=== PATIENT | male | born 1990 | race Caucasian/White ===

== ENCOUNTER 2020-05-15 13:38 | Emergency (ER) | payer OTHER, SELFPAY ==
[2020-05-15 15:34] VITALS: BP 134/82; PULSE 80; RESP 16; TEMP 37.2; O2SAT 99; BMI 19.2
--- NOTE | 2020-05-15 15:38 | ED_ITS ---
HPI - Dental/Oral General Chief complaint: Dental/Oral Stated complaint: DENTAL PAIN Time Seen by Provider: 05/15/20 15:32 Source: patient Mode of arrival: ambulatory Limitations: no limitations History of Present Illness HPI Narrative: 29yoM presenting to the ED c c/o left lower dental pain/abscess x a few days worse today. Reports the abscess exploded in the waiting room . Reports he just got his [facility] back therefore will make an appointment to have The tooth extracted. Denies fever, chills, N/V/D, Difficulty swallowing, pain with swallowing, changes in PO intake, trauma to face now or recently, difficulty speaking, recent dental procedure, heat or cold intolerance while eating, gum swelling, throat swelling, bleeding, lacerations, facial swelling or redness, tongue swelling. Related Data Previous Rx's Medication Instructions Recorded ibuprofen 800 mg PO Q8H PRN #14 tab 05/15/20 oxycodone-acetaminophen [Percocet] 1 tab PO Q6H PRN #10 tab 05/15/20 penicillin V potassium 500 mg PO QID 10 Days #40 tab 05/15/20 Allergies Allergy/AdvReac Type Severity Reaction Status Date / Time benzocaine [From ANBESOL] Allergy Unknown INCREASED Unverified 04/21/20 16:34 FACIAL SWELLING phenol [From ANBESOL] Allergy Unknown INCREASED Unverified 04/21/20 16:34 FACIAL SWELLING povidone-iodine Allergy Unknown INCREASED Unverified 04/21/20 16:34 [From ANBESOL] FACIAL SWELLING Review of Systems Review of Systems: Yes all other systems are reviewed and are negative Constitutional: Constitutional: Reports as per HPI, Denies anorexia, Denies body ache(s), Denies chills, Denies fatigue, Denies fever(s), Denies headache(s), Denies poor appetite, Denies weakness, Denies weight gain and Denies weight loss Eyes: Eyes: Reports as per HPI ENT: Reports as per HPI, Denies dizziness, Denies headache(s) and Denies neck pain Cardiovascular: Cardiovascular: Reports as per HPI, Denies chest pain and Denies dyspnea Respiratory: Respiratory: Reports as per HPI, Denies cough and Denies dyspnea Gastrointestinal: Gastrointestinal: Reports as per HPI, Denies abdominal pain, Denies melena, Denies hematochezia, Denies coffee ground emesis, Denies constipation, Denies diarrhea, Denies loose stools, Denies nausea, Denies vomiting and Denies hematemesis Genitourinary: Genitourinary: Reports as per HPI, Denies hematuria, Denies difficulty urinating, Denies genital lesions, Denies genital pain, Denies flank pain, Denies urinary frequency, Denies urinary hesitancy and Denies urinary urgency Musculoskeletal: Musculoskeletal: Reports as per HPI, Denies neck pain, Denies numbness and Denies tingling Integumentary/Breasts: Skin/Breast: Reports as per HPI Neurologic: Reports as per HPI, Denies dizziness, Denies headache(s), Denies numbness, Denies tingling and Denies weakness Psychiatric: Psychiatric: Reports as per HPI Endocrine: Endocrine: Reports as per HPI and Denies fatigue Hematologic/Lymphatic: Hematologic/Lymphatic: Reports as per HPI Allergic/Immunologic: Allergic/Immunologic: Reports as per HPI [facility] Past Medical History Attestation statement: The following information was validated with the patient. Medical History No known health problems Social History Social History Alcohol intake: never Smoking Status: Current every day smoker Smoked in Last 30 Days: Yes Use of substances other than those prescribed or required for medical reasons: Yes Substance Use Type: Marijuana Substance Use Frequency: Socially Advance Directives: No Advance Directives Information Provided: No Physical Exam Const: General: cooperative, healthy appearing, comfortable, no acute distress, well developed, alert, awake and Physically active Nutritional Appearance: average body habitus and well nourished Orientation/consciousness: patient oriented x3 Limitations: no limitations HENMT: Head: Yes normal to inspection, Yes No palpable skull fracture present, Yes normocephalic and Yes atraumatic Ears: hearing grossly normal bilaterally General nose exam: Normal external nose present Face and sinus: Yes normal facial exam Mouth: Normal oral and palatal mucosa present, lip normal, tongue normal, Normal salivary glands and ducts present, oropharynx normal, moist mucous membranes, no drooling, no muffled voice and no trismus Teeth and gingiva: dentition normal, gingiva normal, caries (old fracture to left lower molar no fluctuance) and poor dentition Throat: Yes posterior oropharynx normal, Yes tonsils normal, Yes uvula midline and Yes other Eyes: General: appearance normal, both eyes and all related structures Visual Mensah: normal visual mensah by confrontation Alignment and Position: alignment normal Periorbital: periorbital findings normal Eyelids: Yes eyelids normal Conjunctivae: conjunctivae normal Sclerae: sclerae normal Pupils: Equal, round and reactive pupils present EOM: EOMs intact bilatera lly Neck: Neck: Yes normal visual inspection, Yes full ROM, Yes no lymphad enopathy, Yes no meningeal signs, Yes trachea midline and Yes supple Chest: Chest palpation & inspection: normal inspection of the chest Resp: Effort & Inspection: normal respiratory effort and able to speak in complete sentences Auscultation: clear to auscultation bilaterally, no crackles, no rales, no rhonchi and no wheezes Cardio: Rate: regular rate Rhythm: regular rhythm Heart sounds: S1 normal heart sound present and S2 normal heart sound present Peripheral pul ses: Peripheral pulses 2+ throughout GI: Inspection: Yes normal to inspection Palpation (GI): Soft to palpation, nontender and No hepatosplenomegaly present Percussion: Yes normal to percussion Auscultation: normal bowel sounds : General: Yes no CVA tenderness Back/Spine/Pelvis: Back: no CVA tenderness Cervical Spine: normal cervical lordosis and cervical ROM normal Thoracic/Lumbar Spine: thoracic and lumbar spine normal to inspection and thoraco-lumbar ROM normal Skin: General skin exam: no rashes or lesions noted, elasticity normal and turgor normal Trauma: no lacerations or abrasions Wounds: no wounds Hair: normal Nails: normal Neuro: General: patient oriented x3 and no meningeal signs Cranial nerves: Yes CN's II-XII intact bilaterally and Yes Equal, round and reactive pupils present Cognition (Neuro): normal cognition Gait exam (Neuro): Normal gait present Motor exam (neuro): 5/5 motor strength present throughout Extrem: General: Yes normal to inspection, Yes full ROM, Yes capillary refill normal, Yes no clubbing, cyanosis or edema, No no pedal edema, No no calf tenderness, Yes normal gait and No edema Right upper extremity: normal to inspection, full ROM and normal capillary refill; no edema Left upper extremity: normal to inspection, full ROM and normal capillary refill; no edema Right lower extremity: normal to inspection, full ROM and normal capillary refill; no edema Left lower extremity: normal to inspection, full ROM and normal capillary refill; no edema Psych: Appearance: grossly normal and well kempt Mental Status: mental status grossly normal Speech and movement: Normal speech and movement present and Clear speech present Affect: normal affect Attitude: cooperative Th ought process: Normal thought process present Thought content: Normal thought content present Insight: Good insight present (Psych) Judgement: Good judgement present (Psych) Course Course Course Narrative: Given HPI and PE, most likely diagnosis: dental pain/caries. No facial swelling, signs of infection, cellulits, lymphangitis, or abscess. Patient is afebrile, well appearing in no acute distress. No ginigival swelling, or bleeding. Multiple dental carries and poor dentition. Patient will make an appointment this week. Will treat pain and place on abx's. Educated on signs of infection and advised to return to ED, should experience facial swelling, fever, N/V. Patient understands and agrees with plan. [facility] - Dental/Oral Medical Records Attestation: I reviewed the patient's medical records. Discharge Plan Discharge Clinical Impression: Dental caries, Toothache Patient Disposition: Home, Self-Care Instructions: Toothache (ED) Prescriptions: New penicillin V potassium 500 mg tablet 500 mg PO QID 10 Days Qty: 40 RF: 0 oxycodone-acetaminophen [Percocet] 5-325 mg tablet 1 tab PO Q6H PRN (Reason: pain) Qty: 10 RF: 0 ibuprofen 800 mg tablet 800 mg PO Q8H PRN (Reason: pain) Qty: 14 RF: 0 Stand Alone Forms: Work/School Release Print Language: Korean
== END 2020-05-15 16:12 | disposition home or self-care (01) ==
PROVIDERS: Emergency Provider Emergency Medicine
DX: K02.9 Dental caries, unspecified (principal); K08.89 Other specified disorders of teeth and supporting structures; F17.200 Nicotine dependence, unspecified, uncomplicated
CPT/HCPCS: 99283; 99284

== ENCOUNTER 2020-06-17 09:55 | Outpatient (REF) | payer OTHER, SELFPAY | END 2020-06-17 09:56 | disposition home or self-care (01) | LOC: HO.LAB 09:55 | PROVIDERS: Visit Provider Internal Medicine | DX: Z20.828 Contact with and (suspected) exposure to other viral communicable diseases (principal) | CPT/HCPCS: C9803; U0003 ==

== ENCOUNTER 2020-08-23 15:39 | Outpatient (REF) | payer OTHER, SELFPAY | END 2020-08-23 15:40 | disposition home or self-care (01) | LOC: HO.LAB 15:39 | PROVIDERS: Visit Provider Internal Medicine | DX: Z20.822 Contact with and (suspected) exposure to COVID-19 (principal) | CPT/HCPCS: 36415; C9803; U0003 ==

== ENCOUNTER 2020-11-28 14:54 | Outpatient (REF) | payer OTHER, SELFPAY ==
[2020-11-28 15:05] LABS: COVID-19 Test Positive (Negative)
== END 2020-11-28 14:55 | disposition home or self-care (01) ==
LOC: HO.LAB 14:54
PROVIDERS: Visit Provider Internal Medicine
DX: Z20.822 Contact with and (suspected) exposure to COVID-19 (principal)
CPT/HCPCS: 36415; 87635; C9803

== ENCOUNTER 2020-12-07 15:17 | Outpatient (REF) | payer OTHER, SELFPAY | END 2020-12-07 15:18 | disposition home or self-care (01) | LOC: HO.LAB 15:17 | PROVIDERS: Visit Provider Internal Medicine | DX: Z20.822 Contact with and (suspected) exposure to COVID-19 (principal) | CPT/HCPCS: C9803; U0003; U0005 ==

== ENCOUNTER 2023-01-03 17:59 | Emergency (ER) | payer OTHER, SELFPAY ==
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
[2023-01-03 20:15] VITALS: BP 122/64; PULSE 66; RESP 20; TEMP 36.5; O2SAT 100; BMI 18.5
[2023-01-03 20:20] VITALS: RESP 18
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
--- NOTE | 2023-01-03 22:05 | PC.NURSE ---
pt of to ct
[2023-01-03] MEDS: oxyCODONE HCl Immed Release 5 MG TABLET PO (22:14)
[2023-01-03 23:08] VITALS: BP 115/80; PULSE 53; RESP 18; O2SAT 99
[2023-01-03] MEDS: Ibuprofen 600 MG TABLET PO (23:08)
== END 2023-01-03 23:29 | disposition home or self-care (01) ==
PROVIDERS: Emergency Provider Emergency Medicine
DX: S16.1XXA Strain of muscle, fascia and tendon at neck level, initial encounter (principal); S40.012A Contusion of left shoulder, initial encounter; R51.9 Headache, unspecified; M54.2 Cervicalgia; M54.6 Pain in thoracic spine; V43.52XA Car driver injured in collision with other type car in traffic accident, initial encounter; Y93.9 Activity, unspecified; Y92.410 Unspecified street and highway as the place of occurrence of the external cause; Y99.9 Unspecified external cause status; Z79.899 Other long term (current) drug therapy
CPT/HCPCS: 70450; 71101; 72070; 72125; 73030; 99284

== ENCOUNTER 2024-06-28 11:03 | Emergency (ER) | payer OTHER, SELFPAY ==
[2024-06-28 11:12] VITALS: BP 122/63; PULSE 82; RESP 18; TEMP 37.1; O2SAT 98; BMI 19.2
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
--- NOTE | 2024-06-28 12:57 | PC.NURSE ---
PT placed into the room, patient asked for juice patient made aware that they would be NPO until the provider assessed them and determined if it was safe to have fluids this nurse and provider explained to her the risks of eating and drinking before provider assessment and images,etc.... PT said she could have fluids and nothing was wrong with her, except for her leg and that she needed, pt demanded to speak to credit charge authorizer, credit charge authorizer verbalized the risks of having fluids/ food before it was determined safe as well. PT said Security told me to check in because you guys can help me with a ride. We explained to the patient that unfortunately no ride services are available today but that the bus is free. PT said You guys have to give me a ride or i will call the police, you guys are not going to disrespect the police. Patient wishes to leave because she wants to get a drink out in the waiting room and refuses to wait to be cleared.
[2024-06-28 13:01] VITALS: BP 122/63; PULSE 82; RESP 18; TEMP 37.1; O2SAT 98
== END 2024-06-28 13:01 | disposition home or self-care (01) ==
PROVIDERS: Emergency Provider Emergency Medicine
DX: S61.012A Laceration without foreign body of left thumb without damage to nail, initial encounter (principal); M79.642 Pain in left hand; W26.0XXA Contact with knife, initial encounter; Y93.G3 Activity, cooking and baking; Y92.89 Other specified places as the place of occurrence of the external cause; Y99.0 Civilian activity done for income or pay
CPT/HCPCS: 99282; 99284

== ENCOUNTER 2024-06-30 08:14 | Emergency (ER) | payer OTHER, MEDICAID, SELFPAY ==
[2024-06-30 08:40] VITALS: BP 122/66; PULSE 61; RESP 16; TEMP 37.2; O2SAT 98; BMI 18.4
--- NOTE | 2024-06-30 09:20 | ED.WOUNDLAC ---
HPI - Wound/Laceration General Chief Complaint: Wound/Laceration Stated Complaint: Lac L hand Time Seen by Provider: 06/30/24 09:01 Source: patient Mode of arrival: ambulatory Limitations: no limitations History of Present Illness ED Provider: MONI LUIS PA-C HPI narrative: 33 year old male no significant past medical history presents to the ED today for evaluation of laceration to left 1st digit. Patient has sustained this laceration while cutting a turkey at work 2 days ago. He presented to the ED and was told that the area could not be sutured. Dermabond was applied and he was discharged home. Patient states that since being discharged, the laceration has opened. It has been bleeding. Reports concern about returning to work with an open laceration. Denies any pus or surrounding redness. Denies difficulty moving the thumb. He is not on anticoagulation. He tells me his tetanus has been updated in the last 5 years. Denies fever, chills. Denies any other complaints at present. Related Data Previous Rx's ?Medication ?Instructions ?Recorded ibuprofen 800 mg tablet 800 mg PO Q8H PRN pain #14 tabs 05/15/20 oxycodone-acetaminophen 5 mg-325 1 tab PO Q6H PRN pain #10 tabs 05/15/20 mg tablet (Percocet) penicillin V potassium 500 mg 500 mg PO QID dental infection 10 05/15/20 tablet days #40 tabs ibuprofen 600 mg tablet 600 mg PO Q8H PRN pain #14 tabs 01/03/23 Allergies Allergy/AdvReac Type Severity Reaction Status Date / Time benzocaine [From ANBESOL] Allergy Unknown INCREASED Verified 06/30/24 08:41 FACIAL SWELLING phenol [From ANBESOL] Allergy Unknown INCREASED Verified 06/30/24 08:41 FACIAL SWELLING povidone-iodine Allergy Unknown INCREASED Verified 06/30/24 08:41 [From ANBESOL] FACIAL SWELLING Review of Systems Review of Systems: Constitutional: No fever, chills, fatigue, night sweats, weight changes ENT/Mouth: No ear pain, hearing loss, nasal congestion, sinus pain, rhinorrhea, sore throat Eyes: No eye pain, swelling, redness, vision changes, discharge Cardio: No chest pain, palpitations, SERNA, orthopnea, peripheral edema Pulm: No SOB, cough, sputum, wheezing, dyspnea, hemoptysis GI: No nausea, vomiting, hematemesis, abdominal pain, diarrhea, constipation, hematochezia, melena : No irregular bleeding, dysuria, frequency, urgency, hesitancy, hematuria, flank pain, urinary flow changes, urinary incontinence or retention MSK: No back pain, neck pain, joint pain, myalgias Skin: No lesions, rashes, +laceration Neuro: No weakness, numbness, paresthesias, LOC, dizziness, headache Psych: No anxiety/panic, depression, SI/HI, AH/VH All other systems reviewed and are negative. [facility] Past Medical History Attestation statement: The following information was validated with the patient. Source: old records reviewed and nursing notes reviewed Medical History No known health problems Social History Social History Alcohol intake: never Substance Use Type: Marijuana Advance Directives: No Advance Directives Information Provided: Yes Physical Exam Vital Signs: Vital Signs: Last Vital Signs Temp 98.9 F 06/30/24 08:40 Pulse 61 06/30/24 08:40 Resp 16 06/30/24 08:40 BP 122/66 06/30/24 08:40 Pulse Ox 98 06/30/24 08:40 O2 Del Method Room Air 06/30/24 08:40 BMI result Body Mass Index 18.4 Vital signs stable General: Well appearing, in no acute distress. Skin: Warm, dry, intact. No rashes or lesions. Head: Normocephalic, atraumatic. EENT: Hearing is intact b/l. Conjunctiva clear. PERRLA. Moist mucous membranes.? Cardiac: Chest wall symmetric. Lungs: Normal respiratory effort without accessory muscle use. CTA bilaterally Ext: + 2 cm linear laceration noted between left 1st MCP and PIP. Bleeding controlled. No obvious foreign body. Finger to thumb opposition intact. Strength intact. Full ROM intact to left 1st digit w/ pain on flexion of MCP. Neuro: AOx3. Normal speech. Ambulating with steady gait. Psych: Appropriate mood and affect. Responds appropriately to questions. Course Course Course Narrative: 958 -- digital block performed. Laceration repair. See procedure note. Patient tolerated well. Advised to follow up with hand surgery, referral provided. Educated on returning in 10-14 days for suture removal. tetanus UTD. Patient has remained stable throughout ED visit today. Discussed worrisome signs and symptoms and when to return to the ED. All questions answered at this time. Patient is agreeable with disposition and stable for discharge. Medications Administered Discontinued Medications Generic Name Dose Route Start Last Admin Trade Name Twila PRN Reason Stop Dose Admin Lidocaine HCl 5 ml 06/30/24 09:22 06/30/24 09:38 Lidocaine Hcl 1 % Mpf 5 Ml Vial INFILTRATI 06/30/24 09:23 5 ml ONCE ONE Administration Medical Decision Making Medical Decision Making MDM Narrative: 33 year old male no significant past medical history presents to the ED today for evaluation of laceration to left 1st digit. Vital signs stable. Afebrile. He is nontoxic-appearing and in no acute distress. 2 cm linear laceration noted between left 1st MCP and PIP. Bleeding controlled. No obvious foreign body. Finger to thumb opposition intact. Strength intact. Full ROM intact to left 1st digit w/ pain on flexion of MCP. Differential diagnosis includes abrasion, laceration. Unlikely fracture, ligament/tendon injury, retained foreign body. Plan for laceration repair and disposition. Differential Diagnosis Differential Diagnoses: The differential diagnosis associated with the presentation includes As above Admission/Observation Not indicated External Record Review External record reviewed: Inpatient record Prescription Management I considered prescription management with: Pain Medication Social Determinants Patient?s care significantly limited by Social Determinants of Health including: Other Social Determinant of Health Procedures Laceration Laceration 1: Site: hand Side (If applicable): left Size (cm): 2 Description: linear Depth: simple, single layer Local Anesthetic: lidocaine 1% Amount of anesthesia used (mL): 10 Pre-repair: wound explored Skin layer closed with: nylon Size (cm): 3-0 Number of sutures: 5 Technique: simple, interrupted Nerve Block Nerve Block 1: Time out performed: Yes Local Anesthetic: lidocaine 1% Amount of anesthesia used (mL): 10 Side: left Nerve Blocks: digital Procedure Successful: Yes Patient Tolerated Procedure: well Complications: none Critical Care Time Critical Care Time Critical Care Time: No Discharge Plan Discharge Clinical Impression: Suture of skin wound Finger laceration Qualifiers: Encounter type: subsequent encounter Finger: thumb Damage to nail status: without damage Foreign body presence: without foreign body Laterality: left Qualified Code(s): S61.012D - Laceration without foreign body of left thumb without damage to nail, subsequent encounter Patient Disposition: Home, Self-Care Instructions: Care For Your Stitches (ED), Finger Laceration (ED) Additional Instructions: You have been evaluated in the Emergency Department today for a laceration to your left thumb. Your laceration was repaired in the ED with 5 sutures.? Please keep the area surrounding the laceration clean and dry. Please keep the area out of the sunlight for the next 6 months to help prevent scarring.? If you develop redness or swelling at the site of your laceration please come back to the ER for a wound check. I recommend you take 600mg ibuprofen every 6 hours or tylenol 650mg every 6 hours as needed for pain. If needed, you can alternate these medications so that you take one medication every 3 hours. For example, at noon take ibuprofen, then at 3pm take tylenol, then at 6pm take ibuprofen. Please follow up with your primary care physician in 10-14 days for suture removal. You can also return to the ER or another urgent care facility for this service. Please follow up with [facility] (Dr. Sullivan). You've been provided with a referral. Call them today to make an appointment. they will not call you. Return to the Emergency Department if you experience discharge from your laceration, redness around your laceration, warmth around your laceration, fever, vomiting, numbness, tingling, or any other concerning symptoms. In the case of an emergency call 911. Prescriptions: No Action penicillin V potassium 500 mg tablet 500 mg PO QID 10 Days Qty: 40 0RF oxycodone-acetaminophen [Percocet] 5-325 mg tablet 1 tab PO Q6H PRN (Reason: pain) Qty: 10 0RF ibuprofen 800 mg tablet 800 mg PO Q8H PRN (Reason: pain) Qty: 14 0RF ibuprofen 600 mg tablet 600 mg PO Q8H PRN (Reason: pain) Qty: 14 0RF Referrals: Celestina Sullivan MD [Physician] - 3 days (left thumb laceration) Stand Alone Forms: Work/School Release Print Language: Albanian
[2024-06-30] MEDS: Lidocaine HCl 1 % MPF 5 ML VIAL INFILTRATI ×2 (09:38→10:01)
[2024-06-30] MEDS: Ibuprofen 600 MG TABLET PO (10:00)
[2024-06-30] MEDS: Bacitracin Oint 0.9 GM PACKET 1 APPL TOPICAL (10:01)
[2024-06-30 10:06] VITALS: BP 122/66; PULSE 61; RESP 16; TEMP 37.2; O2SAT 98
== END 2024-06-30 10:07 | disposition home or self-care (01) ==
PROVIDERS: Emergency Provider Emergency Medicine
DX: S61.412A Laceration without foreign body of left hand, initial encounter (principal); W26.0XXA Contact with knife, initial encounter; Y93.G3 Activity, cooking and baking; Y92.098 Other place in other non-institutional residence as the place of occurrence of the external cause; Y99.8 Other external cause status
CPT/HCPCS: 12001; 99283; 99284; J2003

== ENCOUNTER 2025-02-13 23:11 | Emergency (ER) | payer OTHER, SELFPAY ==
[2025-02-13 23:15] VITALS: BP 137/83; PULSE 96; RESP 22; TEMP 36.6; O2SAT 98; BMI 19.2
[2025-02-13 23:23] VITALS: BP 134/64; PULSE 87
[2025-02-13 23:25] VITALS: BP 134/64; PULSE 91; RESP 24; TEMP 36.4; O2SAT 99
--- NOTE | 2025-02-13 23:27 | ED.ALLEREA ---
HPI - Allergic Reaction General Chief complaint: Allergic Reaction Stated complaint: allergic reaction Time Seen by Provider: 02/13/25 23:22 Source: patient Mode of arrival: ambulatory Limitations: no limitations History of Present Illness ED Provider: Dr. Jeane Mitchell HPI narrative: 34-year-old male with no known medical history presenting with hives, throat closing after drinking a new type of whiskey tonight. Admits that he has had whiskey many times prior to now and has never had a reaction to it. He does admit that he has had allergic reactions in the past but never had any allergy testing to determine what he is allergic to. Denies other foods or ingested substances tonight. Does admit to tobacco and marijuana use. Denies other illicit substance use. Had been feeling well prior to this. Denies recent illness including syncope or near-syncope, fever, cough or cold-type symptoms, chest pain, difficulty breathing, abdominal pain, nausea or vomiting, tick or mosquito exposure, known sick contacts or travel. Related Data Previous Rx's ?Medication ?Instructions ?Recorded ibuprofen 800 mg tablet 800 mg PO Q8H PRN pain #14 tabs 05/15/20 oxycodone-acetaminophen 5 mg-325 1 tab PO Q6H PRN pain #10 tabs 05/15/20 mg tablet (Percocet) penicillin V potassium 500 mg 500 mg PO QID dental infection 10 05/15/20 tablet days #40 tabs ibuprofen 600 mg tablet 600 mg PO Q8H PRN pain #14 tabs 01/03/23 epinephrine 0.3 mg/0.3 mL 0.3 mg (0.3 mL) IM Q10M PRN 02/14/25 injection, auto-injector (EpiPen anaphylaxis #2 ea 2-Nish) prednisone 50 mg tablet 50 mg PO DAILY 5 days #5 tabs 02/14/25 Allergies Allergy/AdvReac Type Severity Reaction Status Date / Time benzocaine (From ANBESOL) Allergy Unknown INCREASED Verified 02/13/25 23:24 FACIAL SWELLING phenol (From ANBESOL) Allergy Unknown INCREASED Verified 02/13/25 23:24 FACIAL SWELLING povidone-iodine (From Allergy Unknown INCREASED Verified 02/13/25 23:24 ANBESOL) FACIAL SWELLING Review of Systems Review of Systems: Yes all other systems are reviewed and are negative (As per HPI) [facility] Past Medical History Attestation statement: The following information was validated with the patient. (Allergic reactions, remote history of asthma) [facility] Narrative: Uses alcohol, tobacco and marijuana Medical History No known health problems Social History Social History Alcohol intake: never Substance Use Type: Marijuana Advance Directives: No Advance Directives Information Provided: Yes Do you have a plan to hurt others: No Plan Physical Exam ED Vital Signs: Vital Signs - 24 hr 02/13/25 23:15 02/13/25 23:23 02/13/25 23:25 Temperature 98 F 97.5 F Pulse Rate 96 87 91 Respiratory Rate 22 H 24 H Blood Pressure 137/83 134/64 134/64 Pulse Oximetry 98 99 Oxygen Delivery Method Room Air Room Air 02/14/25 00:01 02/14/25 02:26 02/14/25 05:13 Temperature 97.7 F 97.9 F Pulse Rate 83 91 68 Respiratory Rate 17 17 15 Blood Pressure 121/66 101/56 L 118/63 Pulse Oximetry 97 99 98 Oxygen Delivery Method Room Air Room Air Room Air BMI result Body Mass Index 19.2 GENERAL: Anxious, tearful. SKIN: Normal skin color for ethnicity, warm, dry, intact, diffuse hives noted on the face, chest, posterior thorax, abdomen, no vesicular lesions. HEENT: Normocephalic, atraumatic, no stridor, posterior oropharynx slightly erythematous, no exudates, no edema, dentition intact, EOMI, normal phonation. NECK: Soft, supple, full ROM, midline structures nontender, no step-offs, no deformities, no lymphadenopathy. CHEST: Heart regular tachycardia, no murmurs, symmetric chest rise and fall, no crepitus. PULMONARY: Clear to auscultation bilaterally, slight tachypnea, no wheezes/rhales/ rhonchi. ABDOMINAL: Soft, nondistended, nontender, positive bowel sounds in all quadrants. : Deferred. MUSCULOSKELETAL: Normal tone, full range of motion, no deformities, no peripheral edema. NEURO: Alert and oriented x3, CN II through XII intact, equal strength and sensation bilateral upper and lower extremities, no focal neurologic deficits. PSYCHIATRIC: Anxious affect, tearful, fluid speech, good eye contact and appropriate demeanor. Medications Administered Discontinued Medications Generic Name Dose Route Start Last Admin Trade Name Twila PRN Reason Stop Dose Admin Diphenhydramine HCl 50 mg 02/13/25 23:26 02/13/25 23:29 Diphenhydramine Hcl 50 Mg/Ml Vial IVPUSH 02/13/25 23:27 50 mg ONCE ONE Administration Epinephrine 0.3 mg 02/13/25 23:26 02/13/25 23:23 Epinephrine 1 Mg/Ml Vial IM 02/13/25 23:27 0.3 mg STAT STA Administration Famotidine 20 mg 02/13/25 23:26 02/13/25 23:29 Famotidine/Pf 20 Mg/2 Ml Vial IVPUSH 02/13/25 23:27 20 mg ONCE ONE Administration Lactated Ringer's 1,000 mls @ 999 mls/hr 02/13/25 23:26 02/14/25 00:53 Lr IV 02/14/25 00:26 Infused .Q1H1M ONE Infusion Methylprednisolone Sodium Succinate 125 mg 02/13/25 23:26 02/13/25 23:29 Methylprednisolone Sod Succ 125 Mg/2 Ml Vial IVPUSH 02/13/25 23:27 125 mg ONCE ONE Administration Medical Decision Making Medical Decision Making MDM Narrative: Patient presented today for signs and symptoms of possible allergic reaction. Differential diagnosis includes angioedema, anaphylaxis, drug reaction, infection, asthma exacerbation, among others. 11:35pm given his whole-body hives, sensation of throat closing and posterior oropharynx erythema, we will treat as anaphylaxis and give an EpiPen, Solu-Medrol, Pepcid, Benadryl and fluids. 5:20 a.m. Patient is not having any wheezing, nausea or vomiting, abdominal pain, or concerning swelling of the tongue or oropharynx. Airway is unobstructed and blood pressures are within normal limits. Anaphylaxis precautions have been given to the patient in a note to return immediately for signs and symptoms of this. Patient was offered/provided with a prescription for an Epi-Pen. Patient has been urged to follow up with [facility] lifeguard as outpatient. All questions have been answered and patient is stable for discharge. They are welcome back at any time for re-evaluation as we are always happy to do so. Differential Diagnosis Differential Diagnoses: The differential diagnosis associated with the presentation includes (As above) Admission/Observation Consideration of admission/observation: Escalation of care including admission/observation considered Independent Interpretation I performed an independent interpretation of an: Rhythm Strip (Sinus tachycardia) Prescription Management I considered prescription management with: Other (EpiPen, steroids) Discharge Plan Discharge Clinical Impression: Anaphylaxis Patient Disposition: Home, Self-Care Instructions: General Allergic Reaction (ED) Additional Instructions: supervisor carbon paper coating your EpiPen as soon as possible from the pharmacy. Carry it on you at all times. If you develop any skin rashes associated with a sensation of your throat closing, difficulty breathing, vomiting, severe abdominal cramping, passing out or nearly passing out-you should use your EpiPen and return to the emergency department immediately. Call 911 with any medical emergency. Prescriptions: New prednisone 50 mg tablet 50 mg PO DAILY 5 Days Qty: 5 0RF epinephrine [EpiPen 2-Nish] 0.3 mg/0.3 mL auto-injector 0.3 mg IM Q10M PRN (Reason: anaphylaxis) Qty: 2 0RF Rx Instructions: for 2 doses No Action penicillin V potassium 500 mg tablet 500 mg PO QID 10 Days Qty: 40 0RF oxycodone-acetaminophen [Percocet] 5-325 mg tablet 1 tab PO Q6H PRN (Reason: pain) Qty: 10 0RF ibuprofen 800 mg tablet 800 mg PO Q8H PRN (Reason: pain) Qty: 14 0RF ibuprofen 600 mg tablet 600 mg PO Q8H PRN (Reason: pain) Qty: 14 0RF Print Language: Danish
[2025-02-13] MEDS: Lactated Ringers 1,000 ML 999 ML IV (23:30)
[2025-02-14 00:01] VITALS: BP 121/66; PULSE 83; RESP 17; O2SAT 97
--- NOTE | 2025-02-14 00:02 | PC.NURSE ---
pt assessed at bedside by this RN and provider. Medicated per OCT. Pt tolerated well. Hives starting to reduce.
[2025-02-14 02:26] VITALS: BP 101/56; PULSE 91; RESP 17; TEMP 36.5; O2SAT 99
[2025-02-14 05:13] VITALS: BP 118/63; PULSE 68; RESP 15; TEMP 36.6; O2SAT 98
[2025-02-14 05:46] VITALS: BP 128/71; PULSE 62; RESP 16; TEMP 36.4; O2SAT 100
== END 2025-02-14 05:50 | disposition home or self-care (01) ==
PROVIDERS: Emergency Provider Emergency Medicine
DX: L50.0 Allergic urticaria (principal); R00.0 Tachycardia, unspecified; F17.210 Nicotine dependence, cigarettes, uncomplicated; F12.90 Cannabis use, unspecified, uncomplicated
CPT/HCPCS: 96361; 96372; 96374; 96375; 99284; J0165; J1200; J1308; J2919; J7120

== ENCOUNTER 2025-04-15 13:41 | Emergency (ER) | payer OTHER, SELFPAY ==
--- NOTE | ~2025-04-15 | XR_ITS ---
EXAMINATION: XR CERVICAL SPINE 2-3 VIEWS HISTORY: neck pain rad down L arm COMPARISON: There are no prior studies available for comparison. FINDINGS: AP, lateral, swimmer's, and open-mouth odontoid views of the cervical spine are submitted. Osseous mineralization is normal. Seven cervical vertebral bodies are identified maintaining normal height and alignment without evidence of fracture or subluxation. The intervertebral disc spaces are preserved. The odontoid and lateral masses of C1 are intact. There is no prevertebral soft tissue swelling. XR/XR cervical spine 3V IMPRESSION: Unremarkable examination of the cervical spine. Electronically signed by: Kenny Mcmillan MD 04/15/2025 02:57 PM EDT
[2025-04-15 13:44] VITALS: BP 131/68; PULSE 85; RESP 16; TEMP 36.4; O2SAT 99; BMI 22.0
--- NOTE | 2025-04-15 13:46 | ECG_ITS ---
Test Reason : CP Blood Pressure : */* mmHG Vent. Rate : 64 BPM Atrial Rate : 64 BPM P-R Int : 122 ms QRS Dur : 72 ms QT Int : 340 ms P-R-T Axes : 21 72 31 degrees QTcB Int : 350 ms Normal sinus rhythm Normal ECG When compared with ECG of 08-Apr-2017 21:49, No significant change was found Referred By: Radha Collins Electronically Signed By: RAFAEL FRANCOIS MD
--- NOTE | 2025-04-15 13:47 | ED.GENADULT ---
HPI - General Adult General Chief complaint: Extremity Injury, Upper Stated complaint: pain on left shoulder down Time Seen by Provider: 04/15/25 17:49 Source: patient Mode of arrival: ambulatory Limitations: no limitations History of Present Illness ED Provider: chastity frey HPI narrative: 34-year-old male complaining of left upper neck pain now radiates down into his arm with intermittent paresthesias. Denies any chest pain or respiratory distress denies any midline neck pain denies any injury her weakness in upper extremity denies any chest pain or respiratory distress Related Data Previous Rx's ?Medication ?Instructions ?Recorded ibuprofen 800 mg tablet 800 mg PO Q8H PRN pain #14 tabs 05/15/20 oxycodone-acetaminophen 5 mg-325 1 tab PO Q6H PRN pain #10 tabs 05/15/20 mg tablet (Percocet) penicillin V potassium 500 mg 500 mg PO QID dental infection 10 05/15/20 tablet days #40 tabs ibuprofen 600 mg tablet 600 mg PO Q8H PRN pain #14 tabs 01/03/23 epinephrine 0.3 mg/0.3 mL 0.3 mg (0.3 mL) IM Q10M PRN 02/14/25 injection, auto-injector (EpiPen anaphylaxis #2 ea 2-Nish) prednisone 50 mg tablet 50 mg PO DAILY 5 days #5 tabs 02/14/25 cyclobenzaprine 10 mg tablet 10 mg PO TID #30 tabs 04/15/25 methylprednisolone 4 mg tablets in 4 mg PO QAM #21 ea 04/15/25 a dose pack (Medrol (Nish)) Allergies Allergy/AdvReac Type Severity Reaction Status Date / Time benzocaine (From ANBESOL) Allergy Unknown INCREASED Verified 04/15/25 13:45 FACIAL SWELLING phenol (From ANBESOL) Allergy Unknown INCREASED Verified 04/15/25 13:45 FACIAL SWELLING povidone-iodine (From Allergy Unknown INCREASED Verified 04/15/25 13:45 ANBESOL) FACIAL SWELLING Review of Systems Review of Systems: Constitutional : No Fever, No Chills ENT/Mouth : No sore throat, No Rhinorrhea Eyes: No Eye Pain, No Swelling, No Redness Cardiovascular : No Chest Pain, No SOB left upper back pain neck pain denies midline neck pain Respiratory : No Cough, No Sputum Gastrointestinal : No Nausea, No Vomiting, No Diarrhea, No abdominal Pain Genitourinary : No Dysuria, No Hematuria Musculoskeletal : No joint pain, No Myalgias, No Joint Swelling Skin : No Skin Lesions, positive skin rash Neuro : No Weakness, No Numbness, No Headache All other systems reviewed and are negative [facility] Past Medical History Medical History No known health problems Social History Social History Alcohol intake: never Substance Use Type: Marijuana Advance Directives: No Advance Directives Information Provided: Yes Physical Exam ED Exam Exam: Appearance: Alert. Oriented X3. No acute distress. Eyes: Pupils equal, round and reactive to light. ENT: Pharynx normal. Neck: Normal inspection. Neck supple. Tender left upper trapezius backup administrative coordinator equal no neuro deficit tender paravertebral cervical full range motion of neck is neurovascularly intact sensation intact good cap refill. CVS: Normal heart rate and rhythm. Pulses normal. Respiratory: No respiratory distress. Breath sounds normal. Abdomen: Soft and nontender. non distender normal BS Skin: Skin warm and dry. Normal skin color. Extremities: No lower extremity edema. No calf ttp FROM of extemities Neuro: Oriented X 3. Vital Signs: Vital Signs - 24 hr 04/15/25 13:44 Temperature 97.5 F Pulse Rate 85 Respiratory Rate 16 Blood Pressure 131/68 Pulse Oximetry 99 Oxygen Delivery Method Room Air BMI result Body Mass Index 22.0 Course Course Course Narrative: This is a Rapid Medical Examination (RME) performed by Jayden Collins PA-C in triage. Full HPI, ROS, assessment and treatment plan per primary provider in the Main ED. Hx: 34-year-old male here for evaluation of burning sensation to posterior neck with pain now extending down his left upper extremity. Plan: Labs, EKG, imaging Medications Administered Discontinued Medications Generic Name Dose Route Start Last Admin Trade Name Freq PRN Reason Stop Dose Admin Ketorolac Tromethamine 30 mg 04/15/25 18:01 04/15/25 18:36 Ketorolac Tromethamine 30 Mg/Ml Vial IM 04/15/25 18:02 30 mg ONCE ONE Administration Medical Decision Making Medical Decision Making [facility] Narrative: Patient well-appearing. No weakness noted in left upper extremity no neuro deficit noted. Supervisor/Port Director equal. Tender paravertebral cervical and trapezius to palpation. Pain able to be elicited with range of motion of left upper extremity. We will give patient Toradol 30 mg IM and discharge patient on muscle relaxers and steroids. Probable cervical radiculopathy. Patient has no midline neck tenderness. Recommend him to follow up with his primary care doctor. Work labs and C-spine are unremarkable Differential Diagnosis Strain Spasm Cervical radiculopathy Herniated disc Lab Data 04/15/25 14:24 04/15/25 14:24 Labs: Lab Results 04/15/25 Range/Units 14:24 WBC 5.9 (4.8-10.8) X10*3/uL RBC 4.90 (4.60-5.80) X10*6/uL Hgb 16.1 (14.0-18.0) g/dl Hct 44.8 (42.0-52.0) % MCV 91.4 (80.0-98.0) fL MCH 32.9 (27.0-33.0) pg MCHC 35.9 (31.0-36.0) g/dl RDW 11.8 (11.0-16.0) % Plt Count 206 (160-400) X10*3/uL MPV 11.0 (9.4-12.4) fL Immature Gran % (Auto) 0.3 (0.0-0.4) % Neut % (Auto) 54.8 (45-73) % Lymph % (Auto) 35.3 (20-40) % Spink % (Auto) 5.9 (2-11) % Eos % (Auto) 3.2 (0-4) % Baso % (Auto) 0.5 (0-2) % Lymph # (Auto) 2.1 (1.2-4.9) X10*3/uL Spink # (Auto) 0.4 (0.1-1.2) X10*3/uL Eos # (Auto) 0.2 (0.0-0.4) X10*3/uL Baso # (Auto) 0.0 (0.0-0.2) X10*3/uL Abs Immat Gran (auto) 0.02 (0.00-0.03) X10*3/uL Absolute Neuts (auto) 3.2 (2.0-8.3) x10*3/uL Absolute Nucleated RBC 0.000 (0.0-0.012) X10*3/uL Nucleated RBC % (auto) 0.0 (0.0-0.2) /100WBC Sodium 140 (135-145) mmol/L Potassium 4.3 (3.3-5.1) mmol/L Chloride 104 (96-108) mmol/L Carbon Dioxide 30 H (22-29) mmol/L Anion Gap 10 L (12-20) BUN 10 (9-16) mg/dL Creatinine 1.17 (0.5-1.4) mg/dL Estim Creat Clear Calc 82.7 Estimated GFR > 60 Random Glucose 101 (60-115) mg/dL Calcium 9.4 (8.4-10.2) mg/dL Magnesium 2.1 (1.6-2.6) mg/dL Total Bilirubin 0.5 (0.0-1.0) mg/dL AST 31 (5-37) U/L ALT 30 (0-40) U/L Alkaline Phosphatase 70 (39-117) U/L Troponin I High Sens < 2.7 (<3.5-35.0) ng/L Total Protein 7.0 (6.5-8.0) g/dL Albumin 4.4 (3.5-5.0) g/dL Discharge Plan Discharge Clinical Impression: Cervical radiculopathy Patient Disposition: Home, Self-Care Prescriptions: New methylprednisolone [Medrol (Nish)] 4 mg tablets,dose pack 4 mg PO QAM Qty: 21 0RF Rx Instructions: Medrol Dosepak take as directed cyclobenzaprine 10 mg tablet 10 mg PO TID Qty: 30 0RF No Action penicillin V potassium 500 mg tablet 500 mg PO QID 10 Days Qty: 40 0RF oxycodone-acetaminophen [Percocet] 5-325 mg tablet 1 tab PO Q6H PRN (Reason: pain) Qty: 10 0RF ibuprofen 800 mg tablet 800 mg PO Q8H PRN (Reason: pain) Qty: 14 0RF ibuprofen 600 mg tablet 600 mg PO Q8H PRN (Reason: pain) Qty: 14 0RF prednisone 50 mg tablet 50 mg PO DAILY 5 Days Qty: 5 0RF epinephrine [EpiPen 2-Nish] 0.3 mg/0.3 mL auto-injector 0.3 mg IM Q10M PRN (Reason: anaphylaxis) Qty: 2 0RF Rx Instructions: for 2 doses Stand Alone Forms: Work/School Release Discharge Date/Time: 04/15/25 18:36 Print Language: Amharic
[2025-04-15 14:27] LABS: MANUAL DIFF FLAG NO
[2025-04-15 14:32] LABS: Hematocrit 44.8 % (42.0-52.0); Hemoglobin 16.1 g/dl (14.0-18.0); Imm Gran Abs Auto 0.02 X10*3/uL (0.00-0.03); Imm Gran Pct Auto 0.3 % (0.0-0.4); Lymphocytes Absolute Auto 2.1 X10*3/uL (1.2-4.9); Mean Corpuscular HGB Conc 35.9 g/dl (31.0-36.0); Mean Corpuscular Hemoglobin 32.9 pg (27.0-33.0); Mean Corpuscular Volume 91.4 fL (80.0-98.0); NRBC Abs Auto 0.000 X10*3/uL (0.0-0.012); NRBC Pct Auto 0.0 /100WBC (0.0-0.2); Platelet Count 206 X10*3/uL (160-400); Red Blood Count 4.90 X10*6/uL (4.60-5.80); White Blood Count 5.9 X10*3/uL (4.8-10.8)
[2025-04-15 14:47] LABS: Alanine Aminotransferase 30 U/L (0-40); Albumin Level 4.4 g/dL (3.5-5.0); Alkaline Phosphatase 70 U/L (39-117); Anion Gap 10 (12-20); Aspartate Amino Transferase 31 U/L (5-37); Blood Urea Nitrogen 10 mg/dL (9-16); Calcium 9.4 mg/dL (8.4-10.2); Carbon Dioxide 30 mmol/L (22-29); Chloride 104 mmol/L (96-108); Creatinine Clr Calc Pharmacy 82.7; Estimated Glomerular Filt Rate > 60; Magnesium 2.1 mg/dL (1.6-2.6); Potassium 4.3 mmol/L (3.3-5.1); Sodium 140 mmol/L (135-145); Total Protein 7.0 g/dL (6.5-8.0)
[2025-04-15 14:51] LABS: Troponin-I High Sensitivity < 2.7 ng/L (<3.5-35.0)
== END 2025-04-15 18:36 | disposition home or self-care (01) ==
PROVIDERS: Physician Assistant Medical; Emergency Provider Student in an Organized Health Care Education/Training Program
DX: M54.12 Radiculopathy, cervical region (principal); R07.89 Other chest pain
CPT/HCPCS: 36415; 72040; 80053; 83735; 84484; 85025; 93005; 96372; 99283; 99284; J1885

== ENCOUNTER → 2025-04-15 13:46 | Outpatient (BNV) | payer SELFPAY | PROVIDERS: Visit Provider Radiology Diagnostic Radiology | DX: M54.2 Cervicalgia (principal) | CPT/HCPCS: 72040 ==

== ENCOUNTER → 2025-04-15 13:46 | Outpatient (BNV) | payer SELFPAY | PROVIDERS: Visit Provider Internal Medicine Cardiovascular Disease | DX: R07.9 Chest pain, unspecified (principal) | CPT/HCPCS: 93010 ==

== ENCOUNTER 2025-04-28 09:42 | Emergency (ER) | payer MEDICAID, OTHER, SELFPAY ==
[2025-04-28 09:54] VITALS: BP 141/79; PULSE 82; RESP 18; TEMP 36.8; O2SAT 99; BMI 22.1
[2025-04-28 09:58] VITALS: BP 141/79; PULSE 82; RESP 18; TEMP 36.8; O2SAT 99
--- NOTE | 2025-04-28 10:00 | PC.NURSE ---
34 M presents to ED with neck pain that moves to left arm, says pain is worse in LFA, unknown cause. Pain is 7/10. Pt sts he was here about 2 weeks ago seen for this, pain has not improved. A+Ox4, calm, cooperative. RR even and unlabored, denies CP or SOB.
--- NOTE | 2025-04-28 10:40 | ED.NECK ---
HPI - Neck Pain/Injury General Chief Complaint: Neck Pain/Injury Stated Complaint: L Neck pain radiating down arm Time Seen by Provider: 04/28/25 10:38 Source: patient and RN notes reviewed Mode of arrival: ambulatory Limitations: no limitations History of Present Illness ED Provider: Carmela Villeda PA-C HPI Narrative: This is a 34 yo male with no significant past medical history presents to the ED with 1 month of persistent burning neck pain radiating down the left arm, associated with numbness, tingling, and a charley-horse sensation, Pain has been refractory to ibuprofen, tylenol, aleve, and muscle relaxers given at previous ED visit 2 weeks ago, and a medrol dose pack. Topical icy hot provides only brief relief. Last medication dose of muscle relaxer was this morning at 6 am. 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 Denies chest pain or shortness of breath. Related Data Previous Rx's ?Medication ?Instructions ?Recorded ibuprofen 800 mg tablet 800 mg PO Q8H PRN pain #14 tabs 05/15/20 oxycodone-acetaminophen 5 mg-325 1 tab PO Q6H PRN pain #10 tabs 05/15/20 mg tablet (Percocet) penicillin V potassium 500 mg 500 mg PO QID dental infection 10 05/15/20 tablet days #40 tabs ibuprofen 600 mg tablet 600 mg PO Q8H PRN pain #14 tabs 01/03/23 epinephrine 0.3 mg/0.3 mL 0.3 mg (0.3 mL) IM Q10M PRN 02/14/25 injection, auto-injector (EpiPen anaphylaxis #2 ea 2-Nish) prednisone 50 mg tablet 50 mg PO DAILY 5 days #5 tabs 02/14/25 cyclobenzaprine 10 mg tablet 10 mg PO TID #30 tabs 04/15/25 methylprednisolone 4 mg tablets in 4 mg PO QAM #21 ea 04/15/25 a dose pack (Medrol (Nish)) acetaminophen 500 mg tablet 1,000 mg (2 x 500 mg) PO Q8H PRN 04/28/25 (Tylenol Extra Strength) pain #30 tabs ibuprofen 600 mg tablet 600 mg PO Q6H PRN pain #30 tabs 04/28/25 methocarbamol 750 mg tablet 750 mg PO TID #9 tabs 04/28/25 Allergies Allergy/AdvReac Type Severity Reaction Status Date / Time benzocaine (From ANBESOL) Allergy Unknown INCREASED Verified 04/28/25 09:56 FACIAL SWELLING phenol (From ANBESOL) Allergy Unknown INCREASED Verified 04/28/25 09:56 FACIAL SWELLING povidone-iodine (From Allergy Unknown INCREASED Verified 04/28/25 09:56 ANBESOL) FACIAL SWELLING Review of Systems Review of Systems: Yes all other systems are reviewed and are negative Constitutional: Constitutional: Reports as per [facility] Past Medical History Medical History No known health problems Social History Social History Alcohol intake: current Alcohol intake frequency: does not drink Smoked in Last 30 Days: No Use of substances other than those prescribed or required for medical reasons: No Substance Use Type: Marijuana Advance Directives: No Advance Directives Information Provided: Yes Do you have a plan to hurt others: No Plan Physical Exam Vital Signs: Vital Signs: Last Vital Signs Temp 97.9 F 04/28/25 13:11 Pulse 64 04/28/25 13:11 Resp 18 04/28/25 13:11 BP 107/69 04/28/25 13:11 Pulse Ox 99 04/28/25 13:11 O2 Del Method Room Air 04/28/25 13:11 BMI result Body Mass Index 22.1 Const: General: cooperative, comfortable and no acute distress Orientation/consciousness: patient oriented x3 Limitations: no limitations HEENT: Head: Yes normal to inspection, Yes normocephalic and Yes atraumatic Ears: hearing grossly normal bilaterally General nose exam: Normal external nose present Face and sinus: Yes normal facial exam Mouth: Normal oral and palatal mucosa present, oropharynx normal and moist mucous membranes Throat: Yes posterior oropharynx normal Eyes: General: appearance normal, both eyes and all related structures Eyelids: Yes eyelids normal Conjunctivae: conjunctivae normal Sclerae: sclerae normal Pupils: Equal, round and reactive pupils present EOM: EOMs intact bilaterally Neck: Neck: Yes normal visual inspection, Yes full ROM and Yes no lymphadenopathy Lymphatic: no lymphadenopathy noted Chest: Chest palpation & inspection: normal inspection of the chest Resp: Effort & Inspection: normal respiratory effort and able to speak in complete sentences Auscultation: clear to auscultation bilaterally, no crackles, no rales, no rhonchi and no wheezes Cardio: Rate: regular rate Rhythm: regular rhythm Heart sounds: S1 normal heart sound present and S2 normal heart sound present GI: Inspection: Yes normal to inspection Back/Spine/Pelvis: Other: Left trapezius muscle with palpable spasm appreciated. No overlying skin changes. Full ROM of the neck. Pain also noted with movement of the left shoulder. Good capillary refill of the left upper extremity, radial pulses 2+. Skin: General skin exam: no rashes or lesions noted Trauma: no lacerations or abrasions Wounds: no wounds Neuro: General: patient oriented x3 and moves all extremities Cranial nerves: Yes Equal, round and reactive pupils present Extrem: General: Yes normal to inspection Right upper extremity: normal to inspection Left upper extremity: normal to inspection Right lower extremity: normal to inspection Left lower extremity: normal to inspection Medications Administered Discontinued Medications Generic Name Dose Route Start Last Admin Trade Name Elanq PRN Reason Stop Dose Admin Acetaminophen 975 mg 04/28/25 11:06 04/28/25 11:17 Acetaminophen 325 Mg Tablet PO 04/28/25 11:07 975 mg ONCE ONE Administration Diazepam 5 mg 04/28/25 11:06 04/28/25 11:17 Diazepam 5 Mg Tablet PO 04/28/25 11:07 5 mg ONCE ONE Administration Medical Decision Making Medical Decision Making [facility] Narrative: 34 yo male with no past medical history presents with 1 month of burning neck pain radiating down the left arm with associated numbness, tingling, and cramping sensation refractory to ibuprofen, acetaminophen, ketorolac injection, muscle relaxers, and a medrol dose pack. Most likely diagnosis is left-sided trapezius muscle spasm given focal tenderness and reproduction of pain on exam, occupational repetitive motion history, and lack of structural neurological deficits. Cervical radiculopathy considered but less likely as there is no objective weakness or sensory loss. Cervical sprain/strain was considered but less likely due to lack of injury. Chronic musculoskeletal pain was considered given chronicity and occupational strain, but left-sided trapezius spasm is favored given localized exam findings. Cardiac or pulmonary referred pain considered but unlikely without chest pain, exertional symptoms, or risk factors. Clinical picture is most consistent with trapezius muscle spasm. > Pt medicated with tylenol and valium PO with good relief. feeling much better and will be d/c home. Advised to f/u with PCP and given return precautions. Pt stable for d.c. Differential Diagnosis Differential Diagnoses: The differential diagnosis associated with the presentation includes see above Discharge Plan Discharge Clinical Impression: Spasm of left trapezius muscle Patient Disposition: Home, Self-Care Instructions: Muscle Spasm (ED), Warm Compress or Soak (ED) Additional Instructions: You were seen in the emergency department due to pain in your left upper back. Your physical exam was concerning for left trapezius muscle spasm. Your medicated with a strong muscle relaxants called Valium. It is very important that over the next several days you do not over exert yourself as the spasm can return. Gentle stretching, massage, heat can also help. Please follow-up with the primary care physician. I am going to prescribe you a different muscle relaxant, please be advised that this can cause drowsiness, do not drink alcohol or drive while taking this medication. Want you to continue alternating between ibuprofen and or Tylenol. Ibuprofen 600 mg every 6 hours with food, 2 hours later take Tylenol 1000mg every 8 hours as needed. If any new or worsening symptoms occur including but not limited to severe chest pain or shortness of breath, please seek emergent care. Prescriptions: New methocarbamol 750 mg tablet 750 mg PO TID Qty: 9 0RF ibuprofen 600 mg tablet 600 mg PO Q6H PRN (Reason: pain) Qty: 30 0RF acetaminophen [Tylenol Extra Strength] 500 mg tablet 1,000 mg PO Q8H PRN (Reason: pain) Qty: 30 0RF No Action penicillin V potassium 500 mg tablet 500 mg PO QID 10 Days Qty: 40 0RF oxycodone-acetaminophen [Percocet] 5-325 mg tablet 1 tab PO Q6H PRN (Reason: pain) Qty: 10 0RF ibuprofen 800 mg tablet 800 mg PO Q8H PRN (Reason: pain) Qty: 14 0RF ibuprofen 600 mg tablet 600 mg PO Q8H PRN (Reason: pain) Qty: 14 0RF methylprednisolone [Medrol (Nish)] 4 mg tablets,dose pack 4 mg PO QAM Qty: 21 0RF Rx Instructions: Medrol Dosepak take as directed cyclobenzaprine 10 mg tablet 10 mg PO TID Qty: 30 0RF prednisone 50 mg tablet 50 mg PO DAILY 5 Days Qty: 5 0RF epinephrine [EpiPen 2-Nish] 0.3 mg/0.3 mL auto-injector 0.3 mg IM Q10M PRN (Reason: anaphylaxis) Qty: 2 0RF Rx Instructions: for 2 doses Stand Alone Forms: Work/School Release Interventions: ED Discharge Assessment Last Done: 04/28/25 13:11 Discharge Date/Time: 04/28/25 13:11 Print Language: Romanian
[2025-04-28 10:53] VITALS: BP 114/80; PULSE 73; RESP 18; O2SAT 99
[2025-04-28 12:55] VITALS: BP 107/69; PULSE 64; RESP 18; TEMP 36.6; O2SAT 99
[2025-04-28 13:11] VITALS: BP 107/69; PULSE 64; RESP 18; TEMP 36.6; O2SAT 99
== END 2025-04-28 13:11 | disposition home or self-care (01) ==
PROVIDERS: Emergency Provider Emergency Medicine
DX: M62.838 Other muscle spasm (principal); M54.2 Cervicalgia; R20.0 Anesthesia of skin
CPT/HCPCS: 99283; 99284